=== PATIENT | male | born 1945 | race Caucasian/White ===

== ENCOUNTER → 2018-05-11 | Outpatient (CLI) | payer MEDICARE ==
[~2018-05-11] MED LIST: ACETAMINOPHEN325 MG PO; ASPIRIN325 PO; ASPIRIN81 M2 PO; BACTRIM DS TAB1 EACH PO; CENTRUM SILVER1 EAC4 PO; COLACE100 MG PO; HYDROCHLOROTHIA25 M2 PO; HYDROCHLOROTHIA50 MG PO; LEVOTHYROXIN0.088 MG PO; LIPITOR 20 MG T20 M1 PO; MILK OF MA2400 MG/10 PO; NORCO 5-325 TA1 EACH PO; PAXIL10 MG; PLAVIX 75 MG TA75 MG PO; RESTORIL30 MG PO; TRAZODONE 150150 M1
--- NOTE | 2018-05-11 15:25 | CARDNUC ---
[place] [address] CARDIAC NUCLEAR IMAGING REPORT Name: KATHRYN GARCÍA JR Room: [facility]#: [id number] Admission: 05/11/18 Attend Phys: Yfn Boo, Discharge: Date of : 43 Date of Service: 05/11/18 1525 Report #: [id number] THIS REPORT FOR: //name// APPROVED REPORT Study performed: 05/11/2018 08:15:00 Indication: mixed hyperlipidemia, cerebral infarct Patient Location: Out-Patient Stress Tech: Tabby Prater Stress Nurse: Shannan Perkins RN NM Tech:JENNIFER Bardales Ht: 5 ft 10 in Wt: 182 lbs BSA: 2.01 m2 BMI: 26.11 Medical History Medical History: Stroke/TIA, HTN, Hyperlipidemia, Current Smoker, Carotid artery disease Medications: amlodipine, atorvastatin, asa, lisinopril, plavix Allergies: No known drug allergies Cardiac Risk Factors: Age, Current Smoker, HTN, Hyperlipidemia, PVD Exercise History: Sedentary Meds Held (24 hrs): - Resting Data Rest SPECT myocardial perfusion imaging was performed in supine position 30 minutes following the intravenous injection of 10.5 mCi of Tc-99m Sestamibi. Time of rest injection: 919 Date: 05/11/2018 Time of rest imagin The images were gated to evaluate regional wall motion and calculate left ventricular ejection fraction. Administration Route: IV Administration Site: Left Wrist Pharmacologic Stress Pharmacologic stress test was performed by injecting Regadenoson 0.4 mg IV push over 10-15 seconds immediately followed by the intravenous injection of 32.9 mCi of Tc-99m Sestamibi. Time of stress injection: 1045 Time of stress imagin Administration Route: [place] [address] CARDIAC NUCLEAR IMAGING REPORT Name: KATHRYN GARCÍA JR [facility] [id number] Admission: 05/11/18 Attend Phys: Yfn Boo, Discharge: Date of : 43 Date of Service: 05/11/18 1525 Report #: [id number] Gated Stress SPECT was performed 40 minutes after stress injection. The images were gated to evaluate regional wall motion and calculate left ventricular ejection fraction. Prone imaging was performed. Stress Test Details Stress Test: Pharmacologic stress testing performed using 0.4 mg of regadenoson per 5 mL given IV over 10 seconds. Reason for pharmacologic stress test: physical limitation. HR Resting HR: 71 bpm Max Heart Rate (APMHR): 147 bpm Max HR Achieved: 88 bpm Target HR (85% APMHR): 124 bpm % of APMHR: 59 Recovery HR: 98 bpm BP Resting BP: 157/88 mmHg Max BP: 168/56 mmHg ECG Resting ECG: Sinus Rhythm Stress ECG: Sinus Rhythm ST Change: None Arrhythmia: None Recovery ECG: Sinus Rhythm Recovery ST Change: None Recovery Arrhythmia: None Clinical Reason for Termination: Completed protocol Stress Symptoms: None Exercise duration: 0 min sec Exercise capacity: 1.0 METs The patient tolerated Lexiscan infusion without significant symptoms. Stress ECG Conclusion Baseline 12-lead electrocardiogram showed sinus rhythm without significant ST segment abnormality. EKGs obtained during Lexiscan stress show sinus rhythm without significant ST segment changes when compared to baseline. There were no stress-[place] [address] CARDIAC NUCLEAR IMAGING REPORT Name: KATHRYN GARCÍA JR Room: [facility]#: [id number] Admission: 05/11/18 Attend Phys: Yfn Boo, Discharge: Date of : 43 Date of Service: 05/11/18 1525 Report #: [id number] Study: Good Artifact: Mild Diaphragmatic artifact Study Data At rest, the left ventricular ejection fraction was 51%.. Post stress, the left ventricular ejection was 54%.. TID = 0.91. Perfusion Perfusion images obtained in the supine position show a moderate region of photopenia involving the inferior wall consistent with diaphragmatic attenuation artifact. There is also a focal apical defect consistent with apical thinning artifact. Post stress prone imaging shows relatively uniform uptake of the radioisotope throughout the myocardium with exception in the basal portion of the inferior wall. Wall Motion There appears to be very mild hypokinesis involving the basal portion of the inferior and inferoseptal wall. Remaining cohen move normally. Nuclear Conclusion ECG Findings: negative for ischemia Clinical Findings: negative for ischemia Nuclear Findings: negative for ischemia Exercise Capacity: not assessed Left Ventricular Function: abnormal Risk Study: low Myocardial perfusion images suggest the possibility of a prior focal basal inferior wall infarct. There are no reversible defects to suggest ischemia. Left ventricular systolic function is fairly well-preserved. This is not a high risk study. <Conclusion> Baseline 12-lead electrocardiogram showed sinus rhythm without significant ST segment abnormality. EKGs obtained during Lexiscan stress show sinus rhythm without significant ST segment changes when compared to baseline. There were no stress-induced arrhythmias. <ELECTRONICALLY SIGNED> By: Yfn Boo MD, FACC 05/11/18 1525 1525 1525 Yfn Boo MD, FACC /INF
== END ==
LOC: M.NUC 03-25 14:21
DX: E78.2 Mixed hyperlipidemia (principal); I63.9 Cerebral infarction, unspecified; I25.10 Atherosclerotic heart disease of native coronary artery without angina pectoris